=== PATIENT | female | born 1940 | race Caucasian/White ===

== ENCOUNTER → 2018-05-02 | Outpatient (CLI) | payer MEDICARE | END | disposition home or self-care (01) | LOC: RAH 12:13 | PROVIDERS: ATTEND Internal Medicine Critical Care Medicine | DX: I50.9 Heart failure, unspecified (principal); I70.0 Atherosclerosis of aorta; M47.815 Spondylosis without myelopathy or radiculopathy, thoracolumbar region; J84.10 Pulmonary fibrosis, unspecified | CPT/HCPCS: 71046 ==